=== PATIENT | female | born 1975 | race Caucasian/White ===

== ENCOUNTER 2022-08-22 06:29 | Emergency (ER) | payer BC ==
[2022-08-22 06:38] VITALS: RESP 16; TEMP 98.4
[2022-08-22] MEDS ORDERED: MORPHINE SULFATE 4 MG/ML SYRINGE IM STA ×2 (06:43→09:02)
--- NOTE | 2022-08-22 06:51 | ED ---
Lower Extremity Injury HPI - General Chief Complaint: Extremity Injury, Lower Stated Complaint: LT ankle injury Time Seen by Provider: 08/22/22 06:39 Source: patient, family, RN notes reviewed Mode of arrival: wheelchair Limitations: no limitations - History of Present Illness Initial Comments: Patient is a 47-year-old female presents to the emergency room after tripping up the stairs of her RV earlier this morning and rolling her left ankle. Since that time she has had significant pain and swelling in the joint. She did take ibuprofen approximately one hour ago without any changes in symptoms. Her range of motion is limited to to pain and swelling. She denies any other extremity injury or head injury. She reports the fall was a trip and fall without any syncope, dizziness or altered mental status. She denies any other complaints or concerns including any chest pain, shortness of breath, abdominal pain, nausea, vomiting, fevers or chills. She denies any lower extremity swelling prior to the injury. She has a past medical history significant for hypertension. - Related Data Allergies Allergy/AdvReac Type Severity Reaction Status Date / Time Penicillins Allergy Unknown Verified 08/22/22 06:31 Childhood Review of Systems ROS Statement: Those systems with pertinent positive or pertinent negative responses have been documented in the HPI. ROS Other: All systems not noted in ROS Statement are negative. Past Medical History Past Medical History: Hypertension History of Any Multi-Drug Resistant Organisms: C-DIFF Date of last positivie culture/infection: 2018 Past Surgical History: Section, Hernia Repair Past Psychological History: Depression Smoking Status: Current every day smoker Past Alcohol Use History: Heavy Past Drug Use History: None Reported General Exam Limitations: no limitations General appearance: alert, in no apparent distress Head exam: Present: atraumatic, normocephalic, normal inspection Eye exam: Present: normal appearance, PERRL, EOMI. Absent: scleral icterus, conjunctival injection, periorbital swelling ENT exam: Present: normal exam, mucous membranes moist Neck exam: Present: normal inspection, full ROM Respiratory exam: Absent: respiratory distress, accessory muscle use Rectal exam: Present: deferred Left Ankle exam: Present: tenderness, swelling, erythema (mild). Absent: full ROM Foot/Toe exam: Present: tenderness, swelling, erythema (mild dorsal aspect) Neurovascular tendon exam: Present: no vascular compromise Gait: observed and limited by pain Back exam: Present: normal inspection Neurological exam: Present: alert, oriented X3, CN II-XII intact Psychiatric exam: Present: normal affect, normal mood Skin exam: Present: erythema (as above). Absent: abrasion Course Vital Signs 08/22/22 08/22/22 06:32 09:51 Temperature 98.4 F Pulse Rate 91 68 Respiratory 16 16 Rate Blood Pressure 124/81 120/80 O2 Sat by Pulse 96 99 Oximetry Procedures - Orthopedic Fracture Reduction Fracture #1 Consent Obtained: verbal consent Side: left Fracture Reduction Location: tibia, fibula Analgesia: other Technique: direct manipulation (morphine, valium, tordol) Post Reduction X-rays Demonstrate: anatomical reduction Post-Reduction Neuro Exam: intact, no change Post-Reduction Vascular Exam: intact, no change Splint Applied: Yes Patient Tolerated Procedure: well, no complications - Orthopedic Joint Reduction Joint #1 Side: left - Orthopedic Splinting/Casting Injury #1 Side: left Lower Extremity Injury Location: ankle Lower Extremity Immobilizer: posterior splint, Nacho wrap Other Orthopedic Equipment: crutches Medical Decision Making - Medical Decision Making 47-year-old female presenting to the emergency room after a trip and fall earlier this morning with pain and swelling to her left ankle after bleeding to have rolled her ankle. No other extremity injury or head trauma. Will check x-ray of the left ankle and left foot. Will give morphine for pain with recent ibuprofen administration at home. Will monitor response. Continued pain after morphine will give Toradol along with Valium for reduction and splinting of fractured tibia-fibula with anterior dislocation of the tibia from the talus dislocation. Tolerated reduction and splinting well. Will give Tylenol 3 starter pack to utilize for pain along with ibuprofen. Advised need for nonweightbearing status and maintaining of splint with elevation when possible. Advised need for orthopedic follow-up. Will discharge home. Case discussed with Dr. Siu. - Radiology Data Radiology results: report reviewed, image reviewed X-ray left foot shows plantar Callus spur. Left foot appears visually intact fracture to the left ankle distal redemonstrated. X-ray left ankle complete impression fracture of the distal fibula and posterior tibia dislocation from the talus from the tibia anteriorly from the talus. Repeat x-ray of left ankle post reduction shows near anatomical alignment and positioning of the distal fibula and tibia fractures and reduction of posterior dislocation taltotibia junction Disposition Clinical Impression: Fracture, tibia and fibula Disposition: HOME SELF-CARE Instructions (If sedation given, give patient instructions): Moderate Sedation (ED), Ankle Fracture (ED) Additional Instructions: Please continue to maintain continuous use of splint. No weightbearing with crutches use. May return to work if able to not bear weight and utilize crutc hes. Please follow-up with orthopedist. Utilize Tylenol 3 starter pack and [id number] Motrin as needed for pain. May apply ice every 2-3 hours for no longer than great 20 minutes at a time. Elevate joint when possible.Please return to the Emergency Department if symptoms worsen or any other concerns. Is patient prescribed a controlled substance at d/c from ED?: No Referrals: Nonstaff,Physician [Primary Care Provider] - 1-2 days Vinny Hong PAC [PHYSICIAN [employer] WORK[employer]] - 1-2 days Time of Disposition: 10:14
--- NOTE | 2022-08-22 07:33 | XR ---
EXAMINATION TYPE: XR ankle complete LT DATE OF EXAM: 08/22/2022 COMPARISON: None HISTORY: Fall, pain TECHNIQUE: 3V left ankle FINDINGS: There is a spiral fracture of the distal metadiaphyseal fibula. There is anterior dislocati on of the tibia from the talus There appears to be some lateral subluxation of the talus in relation to the tibia. Posterior tibial fracture is evident. Plantar calcaneal heel spur is noted. IMPRESSION: 1. Fractures of the distal fibula and posterior tibia. 2. Dislocation of the talus from the tibia discussed above
--- NOTE | 2022-08-22 07:35 | XR ---
EXAMINATION TYPE: XR foot limited LT DATE OF EXAM: 08/22/2022 COMPARISON: None HISTORY: Fall, pain TECHNIQUE: 2 view left foot FINDINGS: The anterior dislocation of the tibia in relation to the talus is evident on the lateral pr ojection. Posterior tibial fracture is evident. Distal fibular fracture is not well-visualized on thi s exam. Soft tissue swelling is at the ankle. There may be a medial malleolar fracture on this image was not identified on ankle images. Plantar calcaneal heel spur is present. The left foot otherwise appears intact and joint spaces other white appear normal. IMPRESSION: 1. Fracture dislocation of the distal left ankle. Please also see ankle dictation same date. 2. Plantar calcaneal heel spur. 3. Left foot appears intact as visualized. Follow-up can be performed in 7-10 days of acute trauma fo r continued pain.
[2022-08-22] MEDS ORDERED: KETOROLAC 15 MG/ML 1 ML VIAL IM STA (07:45)
[2022-08-22 09:51] VITALS: PULSE 68
[2022-08-22] MEDS ORDERED: ACET/COD 300 MG/30 MG STARTER PACK 6 TAB BTL PO STA (10:12)
--- NOTE | 2022-08-22 10:18 | XR ---
EXAMINATION TYPE: XR ankle limited LT DATE OF EXAM: 08/22/2022 COMPARISON: 08/22/2022 earlier exams. HISTORY: Fracture dislocation left ankle TECHNIQUE: Lateral left ankle FINDINGS: Images obtained through a fiberglass splint. Oblique fracture of the distal fibula and post erior tibia are again evident. There is reduction of previous tibial dislocation. Plantar calcaneal h eel spur is present. IMPRESSION: 1. Near Anatomic alignment and positioning of the distal fibular and tibial fractures and reduction of prior dislocation talotibial junction.
--- NOTE | 2022-08-22 10:20 | XR ---
EXAMINATION TYPE: XR ankle limited LT DATE OF EXAM: 08/22/2022 COMPARISON: 08/22/2022 earlier exam HISTORY: Fracture dislocation distal left ankle TECHNIQUE: AP view left ankle FINDINGS: Fractures of the distal fibula is again evident. The patient's posterior tibial fracture is not identified. In the frontal projection there appears to be slight prominence of the medial ankle mortise. Also patient is along the medial aspect of the metaphyseal tibia. Donor site is not identifi ed however. Both could be considered. IMPRESSION: 1. Reduction of prior dislocation. Some mild prominence remains at the talotibial medial ankle morti se.
[2022-08-22 11:06] VITALS: BP 140/80
== END 2022-08-22 11:06 | disposition home or self-care (01) ==
LOC: EC 06:29
DX: S82.832A Other fracture of upper and lower end of left fibula, initial encounter for closed fracture (principal); I10 Essential (primary) hypertension; F17.200 Nicotine dependence, unspecified, uncomplicated; Z88.0 Allergy status to penicillin; W01.0XXA Fall on same level from slipping, tripping and stumbling without subsequent striking against object, initial encounter
CPT/HCPCS: 73600; 73610; 73620; 27752; 99283; 96372; J2270; J3360; J1885